=== PATIENT | male | born 2000 ===

== ENCOUNTER 2024-03-07 10:07 | Emergency (ER) | payer SELFPAY ==
[~2024-03-07] VITALS: Ht 167.6 cm; Wt 70.5 kg
[2024-03-07 10:16] VITALS: TEMP 98.9
[2024-03-07] MEDS ORDERED: HYDR-3831 PO (12:23)
[2024-03-07 12:35] VITALS: BP 124/80; PULSE 90; RESP 18
== END 2024-03-07 13:11 | disposition home or self-care (01) ==
LOC: EMS 10:07
DX: F41.9 Anxiety disorder, unspecified (principal)
CPT/HCPCS: 99283; Z7502